=== PATIENT | male | born 1985 | race Hispanic/Latino ===

== ENCOUNTER 2022-02-07 19:56 | Observation (INO) | payer OTHER ==
[~2022-02-07] VITALS: Ht 162.6 cm; Wt 84.8 kg
[2022-02-07] VITALS (7 sets, daily range): BP systolic 103–131; BP diastolic 43–73
--- NOTE | 2022-02-07 19:56 | NUR ---
PT ARRIVES VIA EMS, ADMITTED TO ED #10 FOR BEDSIDE TRIAGE.
[2022-02-07 20:18] LABS: URINE BLOOD DIPSTICK TRACE-INTACT (NEGATIVE); URINE COLOR YELLOW; URINE GLUCOSE - DIPSTICK NEGATIVE (NEGATIVE); URINE KETONE TRACE mg/dL (NEGATIVE); URINE LEUK ESTERASE NEGATIVE (NEGATIVE); URINE PH 5.5 (4.5-8.0); URINE PROTEIN - DIPSTICK 30 mg/dL (NEG-TRACE); URINE SPECIFIC GRAVITY >=1.030; URINE UROBILINOGEN - DIPSTICK 0.2 E.U./dL (0.2)
[2022-02-07 20:21] LABS: URINE BILIRUBIN - DIPSTICK SMALL (NEGATIVE)
[2022-02-07 20:22] LABS: URINE NITRITE - DIPSTICK NEGATIVE (Negative)
[2022-02-07 20:27] LABS: HEMATOCRIT 52.5 % (39.0-50.0); HEMOGLOBIN 18.1 g/dl (14.0-18.0); IMMATURE GRANULOCYTES 0.4 % (0.0-5.0); MEAN CELL VOLUME 83.9 fL CALC (80.0-100.0); MEAN CORPUSCULAR HGB 28.9 pG CALC (26.0-32.0); MEAN CORPUSCULAR HGB CONC 34.5 g/dL CAL (32.0-36.0); NEUT# 18.1 thou/uL (1.82-7.42); RED BLOOD COUNT 6.26 mill/uL (4.70-6.10); RED CELL DISTRI WIDTH 11.9 % (11.5-15.5)
[2022-02-07 20:31] LABS: URINE CALCIUM OXALATE CRYSTALS FEW lpf; URINE WBC 0-2 WBC/hpf (0-5)
[2022-02-07 20:36] LABS: ALBUMIN 5.6 g/dL (3.2-5.0); BILIRUBIN, TOTAL 1.1 mg/dL (0.0-1.4); CREATININE 2.2 mg/dL (0.7-1.3); POTASSIUM 4.3 mmol/l (3.5-5.1); TOTAL PROTEIN 9.2 g/dL (6.3-8.2)
--- NOTE | 2022-02-07 23:08 | NUR ---
REPORT CALLED TO FLOOR PT TRANSFERRED WITHOUT INCIDENCE
--- NOTE | 2022-02-08 | NUR ---
PATIENT ADMITTED FROM ER VIA WHEELCHAIR WITH ER STAFF IN ATTENDANCE. PATIENT WAS ABLE TO TRANSFER TO THE BED. PATIENT IS [place]AI[place] SPEAKING ONLY. JESUS ROGEL HER TO TRANSLATTE-PATIENT IS AWAKE ALERT AND ORIENTEDX3. STATES THAT HE WAS OUTSIDE TODAY PICKING TOMATOS WHEN HE BECAME NAUSEATED AND WAS VOMITTING-WAS THEN BROUGHT TO THE ER. STATES THAT HE LIVES WITH HIS FAMILY. DENIES ANY PMH OR SURGERY. STATES THAT HIS LAS BM WAS TODAY-MEDICATED WITH MOM 30CC FOR CONSTIPATION NOTED ON CT. DENIES ANY DIFFICULTY WITH URINATION. DENIES ANY NAUSEA AT THIS TIME. ABD IS SOFT WITH ACTIVE BS. LUNGS ARE CLEAR. NO PERIHERAL EDEMA NOTED. PULSES ARE PALPABLE. PROVIDED WITH HEALTHY CHOICE TURKEY DINNER-ATE SMALL AMT. IV SITE TO LACINTACT. IVF NS HUNG AND INFUSING AT 150CC/HR. SITE IS HEALTHY WITH GOOD BLOOD RETURN.ORIENTED PATIENT TO ROOM AND SURROUNDINGS. INSTRUCTED ON USE OF NURSE CALL LIGHT SYSTEM AND TV REMOTE. SAFETY PRECAUTIONS REINFORCED. CALL LIGHT IN REACH. WILL CONT TO MONITOR.
--- NOTE | 2022-02-08 02:54 | NUR ---
RESTING IN BED-NO COMPLAINTS AT THIS TIME. IVF PATENT ANDINFUSING VIA LAC SITE AT 150CC/HR. SITE REMAINS HEALTHY. CALL LIGHT IN REACH. WILL CONT TO MONITOR.
[2022-02-08 03:25] VITALS: BP 97/48; BP 98/46
[2022-02-08 05:12] LABS: HEMATOCRIT 43.8 % (39.0-50.0); HEMOGLOBIN 14.8 g/dl (14.0-18.0); IMMATURE GRANULOCYTES 0.2 % (0.0-5.0); MEAN CELL VOLUME 86.1 fL CALC (80.0-100.0); MEAN CORPUSCULAR HGB 29.1 pG CALC (26.0-32.0); MEAN CORPUSCULAR HGB CONC 33.8 g/dL CAL (32.0-36.0); NEUT# 10.49 thou/uL (1.82-7.42); RED BLOOD COUNT 5.09 mill/uL (4.70-6.10); RED CELL DISTRI WIDTH 12.2 % (11.5-15.5)
[2022-02-08 05:27] LABS: ANION GAP 10 (6-22 (CALC)); BUN 18 mg/dL (9-20); CHLORIDE 105 mmol/l (95-108); CPK 1026 u/l (52-200); POTASSIUM 3.8 mmol/l (3.5-5.1); SODIUM 140 mmol/l (137-146)
[2022-02-08 05:28] LABS: BUN/CREATININE RATIO 18 (12-20 (CALC)); CARBON DIOXIDE 29 mmol/l (22-30); GFR > 60 ML/MIN (>=60 (CALC)); GFR FOR AFR.AMER. > 60 ML/MIN (>=60 (CALC))
--- NOTE | 2022-02-08 07:38 | NUR ---
Patient is screened for physical medicine intervention and no needs are identified at this time
--- NOTE | 2022-02-08 08:00 | NUR ---
GOT REPORT FROM [employer] INSPECTOR NURSE. PATIENT ASSESSED, AOX4, PATIENT AWAKE IN BED WATCHING TV. PATIENT DENIES ANY DISCOMFORT. DOES NOT NEED ANYTHING AT THIS TIME.
[2022-02-08 08:19] VITALS: BP 107/60
--- NOTE | 2022-02-08 12:21 | NUR ---
Discharge instructions given. Patient verbalizes understanding of same. Discharged in stable condition via Wheelchair to Home with family. All belongings sent with pt.
== END 2022-02-08 12:21 | disposition home or self-care (01) | DRG 641 ==
LOC: ED 19:56 → MS2 22:23
PROVIDERS: Family Medicine; ADMIT Hospitalist; ATTEND Hospitalist
DX: E86.0 Dehydration (principal); M62.82 Rhabdomyolysis; N17.9 Acute kidney failure, unspecified; X30.XXXA Exposure to excessive natural heat, initial encounter; Y93.89 Activity, other specified; Y92.73 Farm field as the place of occurrence of the external cause; Y99.0 Civilian activity done for income or pay; Z20.822 Contact with and (suspected) exposure to COVID-19
CPT/HCPCS: G0378